=== PATIENT | male | born 1960 | race Two or more races ===

== ENCOUNTER → 2018-05-27 | Outpatient (CLI) | payer OTHER ==
[2018-05-27 15:21] LABS: BASO % 0 % (0-3); EOS % 1 % (0-3); HEMATOCRIT 25.4 % (39.0-53.0); HEMOGLOBIN 8.3 g/dL (13.0-17.5); LYMPH # 0.1 x10^3/uL (1.0-4.8); LYMPH % 4 % (24-48); MEAN CORPUSCULAR HEMOGLOBIN 28 pg (25-35); MEAN CORPUSCULAR HGB CONC 33 g/dL (31-37); MEAN CORPUSCULAR VOLUME 86 fL (79-100); MONO # 0.6 x10^3/uL (0.0-1.1); MONO % 16 % (0-9); NEUT # 2.8 x10^3uL (1.8-7.7); NEUT % 79 % (31-73); PLATELET COUNT 69 x10^3/uL (140-400); RED BLOOD COUNT 2.97 x10^6/uL (4.30-5.70); RED CELL DISTRIBUTION WIDTH 18.1 % (11.5-14.5); WHITE BLOOD COUNT 3.5 x10^3/uL (4.0-11.0)
[2018-05-27 15:52] LABS: ALBUMIN 2.8 g/dL (3.4-5.0); ALBUMIN/GLOBULIN RATIO 0.7 (1.0-1.7); CALCIUM 8.5 mg/dL (8.5-10.1); CREATININE 1.5 mg/dL (0.7-1.3); GFR 48.1; POTASSIUM 4.7 mmol/L (3.5-5.1); TOTAL BILIRUBIN 2.2 mg/dL (0.2-1.0); TOTAL PROTEIN 6.9 g/dL (6.4-8.2)
== END | disposition home or self-care (01) ==
LOC: SPEC 13:46 → EEVIPCON 13:46
PROVIDERS: ATTEND Family Medicine
DX: K70.30 Alcoholic cirrhosis of liver without ascites (principal)
CPT/HCPCS: 36415; 80053; 82140; 85025; 85610

== ENCOUNTER → 2018-06-16 | Outpatient (CLI) | payer OTHER ==
--- NOTE | 2018-06-16 11:08 | RAD ---
Examination: ABDOMEN COMPLETE History: S/P TIPS, ASCITES Comparison/Correlation: None Findings: Complete abdominal ultrasound exam was performed. Moderate quantity of ascites involve the right upper quadrant. Inferior vena cava and abdominal aorta are unremarkable. Cholelithiasis is present. Gallbladder wall thickness is 0.9 cm is evident and likely due to ascites. Common bile duct diameter of 0.5 cm noted. Spleen measures up to 9.6 cm longitudinal. Liver length is 12 cm. Nodular contour of the liver noted. Portal venous flow is noted. Tips is noted. Peak systolic flow proximally is 63 cm/s. Within the mid portion, peak systolic velocity of up to 101 cm/s noted. Distally, peak systolic velocity of 136 cm/s identified. Hepatic venous velocity is 106 cm/s. Portal venous flow up to 30 cm/s identified. Right kidney measures 10 cm x 5.16 x 5.4 seen. Right renal calculus measuring up to 0.6 cm diameter is present. Left kidney measures 11.5 cm x 6.5 cm 17. No hydronephrosis. Right renal calculus measuring 0.6 cm diameter is noted. Impression: Right quadrant ascites. Somewhat less the expected peak systolic velocity of the TIPS proximally. Distal velocity is within normal limits. No conclusive findings of significant stenosis. Consider continued follow-up. Cholelithiasis. Electronically signed by: Marcelo Bass MD (06/16/2018 11:06 AM) [id number]
== END | disposition home or self-care (01) ==
LOC: US 07:33 → EEVIPCON 07:33
PROVIDERS: ATTEND Family Medicine
DX: R18.8 Other ascites (principal); K80.20 Calculus of gallbladder without cholecystitis without obstruction; N20.0 Calculus of kidney; K76.89 Other specified diseases of liver
CPT/HCPCS: 36415; 76700; 82140

== ENCOUNTER → 2018-06-30 | Outpatient (CLI) | payer OTHER ==
[2018-06-30 14:57] LABS: BASO % 0 % (0-3); EOS % 1 % (0-3); HEMOGLOBIN 8.3 g/dL (13.0-17.5); LYMPH # 0.2 x10^3/uL (1.0-4.8); LYMPH % 7 % (24-48); MEAN CORPUSCULAR HEMOGLOBIN 29 pg (25-35); MEAN CORPUSCULAR HGB CONC 33 g/dL (31-37); MEAN CORPUSCULAR VOLUME 86 fL (79-100); MONO # 0.3 x10^3/uL (0.0-1.1); MONO % 14 % (0-9); NEUT % 79 % (31-73); PLATELET COUNT 47 x10^3/uL (140-400); RED BLOOD COUNT 2.89 x10^6/uL (4.30-5.70); RED CELL DISTRIBUTION WIDTH 20.4 % (11.5-14.5); WHITE BLOOD COUNT 2.5 x10^3/uL (4.0-11.0)
[2018-06-30 15:01] LABS: ALBUMIN 1.6 g/dL (3.4-5.0); ALBUMIN/GLOBULIN RATIO 0.4 (1.0-1.7); CALCIUM 7.5 mg/dL (8.5-10.1); CREATININE 1.1 mg/dL (0.7-1.3); GFR 68.8; TOTAL BILIRUBIN 1.1 mg/dL (0.2-1.0); TOTAL PROTEIN 5.2 g/dL (6.4-8.2)
[2018-06-30 15:30] LABS: PLT ESTIMATE DECREASED (ADEQUATE)
[2018-06-30 15:31] LABS: HYPOCHROMIA SLIGHT; POLYCHROMASIA SLIGHT
[2018-06-30 15:32] LABS: ANISOCYTOSIS MOD; OVALOCYTES OCC
== END | disposition home or self-care (01) ==
LOC: EEVIPCON 14:33 → SPEC 14:33
PROVIDERS: ATTEND Family Medicine
DX: K74.60 Unspecified cirrhosis of liver (principal)
CPT/HCPCS: 36415; 80053; 85025

== ENCOUNTER → 2019-02-18 | Outpatient (CLI) | payer OTHER ==
[2019-02-18 20:43] LABS: BASO % 0 % (0-3); EOS # 0.1 x10^3/uL (0.0-0.7); EOS % 4 % (0-3); HEMATOCRIT 29.8 % (39.0-53.0); HEMOGLOBIN 10.2 g/dL (13.0-17.5); LYMPH # 0.3 x10^3/uL (1.0-4.8); LYMPH % 18 % (24-48); MEAN CORPUSCULAR HEMOGLOBIN 34 pg (25-35); MEAN CORPUSCULAR HGB CONC 34 g/dL (31-37); MEAN CORPUSCULAR VOLUME 100 fL (79-100); MONO # 0.2 x10^3/uL (0.0-1.1); MONO % 10 % (0-9); NEUT # 1.2 x10^3uL (1.8-7.7); NEUT % 68 % (31-73); PLATELET COUNT 31 x10^3/uL (140-400); RED BLOOD COUNT 2.99 x10^6/uL (4.30-5.70); RED CELL DISTRIBUTION WIDTH 14.9 % (11.5-14.5)
[2019-02-18 21:05] LABS: % BANDS 3 % (0-9); % EOS 9 % (0-5); % LYMPHS 24 % (24-48); % MONOS 7 % (0-10); % SEGS 57 % (35-66)
[2019-02-18 21:07] LABS: ANISOCYTOSIS SLIGHT; PLT ESTIMATE DECREASED (ADEQUATE); TOXIC GRANULATION PRESENT
[2019-02-20 10:30] LABS: WHITE BLOOD COUNT 1.8 x10^3/uL (4.0-11.0)
== END | disposition home or self-care (01) ==
LOC: SPEC 18:12
PROVIDERS: ATTEND Family Medicine
DX: B19.20 Unspecified viral hepatitis C without hepatic coma (principal)
CPT/HCPCS: 36415; 85007; 85025